=== PATIENT | female | born 1995 ===

== ENCOUNTER → 2016-12-04 | Outpatient (CLI) | payer BC ==
[2016-12-07 01:00] LABS: CHLAMYDIA TRACH RNA*** NOT DETECTED (NOT DETECTED); GC (NEIS GONORRHOEAE)RNA** NOT DETECTED (NOT DETECTED)
== END | disposition home or self-care (01) ==
LOC: C.LABSPEC 15:25
PROVIDERS: ATTEND Obstetrics & Gynecology
DX: Z20.2 Contact with and (suspected) exposure to infections with a predominantly sexual mode of transmission (principal); J20.9 Acute bronchitis, unspecified